=== PATIENT | female | born 1950 | race Caucasian/White ===

== ENCOUNTER 2020-08-15 14:41 | Emergency (ER) | payer MEDICARE, SELFPAY ==
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
[2020-08-15 15:12] VITALS: BP 114/62; PULSE 64; RESP 20; TEMP 36.9; O2SAT 97
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
[2020-08-15 17:30] VITALS: BP 119/68; PULSE 59; RESP 20; TEMP 36.9; O2SAT 98
== END 2020-08-15 17:35 | disposition home or self-care (01) ==
PROVIDERS: Emergency Provider Emergency Medicine
DX: S20.211A Contusion of right front wall of thorax, initial encounter (principal); S91.031A Puncture wound without foreign body, right ankle, initial encounter; V19.9XXA Pedal cyclist (driver) (passenger) injured in unspecified traffic accident, initial encounter
CPT/HCPCS: 71046; 71100; 73610; 99283; 99284